=== PATIENT | female | born 1965 | race Caucasian/White ===

== ENCOUNTER 2020-10-05 13:16 | Emergency (ER) | payer OTHER, SELFPAY ==
--- NOTE | ~2020-10-05 | CT_ITS ---
EXAMINATION: CT ABDOMEN AND PELVIS WITHOUT CONTRAST CLINICAL INFORMATION: Rule out kidney stone on the left side, evaluate for hydrocele COMPARISON: None TECHNIQUE: Multidetector volumetric imaging was performed from the superior aspect of the liver through the pubic symphysis. Sagittal and coronal reformatted images were obtained on the technologist's workstation. This CT examination was performed using dose optimization techniques as appropriate, variously including the following: *Automated exposure control *Adjustment of mA and/or kV according to patient size (this includes techniques or standardized protocols for targeted exams where dose is matched to indication/reason for exam; i.e. extremities or head) *Use of iterative reconstruction technique DLP: 907 mGy-cm FINDINGS: LUNG BASES: The visualized lung bases are unremarkable. LIVER, GALLBLADDER, AND BILIARY TREE: The liver is normal in size, shape, and attenuation. No focal hepatic lesion or biliary ductal dilatation is present. The gallbladder is unremarkable with no evidence of radiopaque gallstones, gallbladder wall thickening, or obvious pericholecystic inflammatory changes. PANCREAS: Unremarkable. SPLEEN: Unremarkable. ADRENAL GLANDS: Unremarkable. KIDNEYS AND URETERS: The right kidney is normal in size shape and attenuation. No right-sided renal calculi or hydronephrosis. There is a 0.6 cm obstructing calculus in the left mid ureter. There is mild proximal hydronephrosis and hydroureter. There are multiple additional punctate calculi in the left mid and lower poles. BLADDER: Unremarkable. GASTROINTESTINAL TRACT: The small and large bowel are unremarkable. The appendix is unremarkable. ABDOMINAL WALL: No significant hernia is appreciated. LYMPH NODES: Small retroperitoneal lymph nodes. VASCULAR: The abdominal aorta is normal in caliber. There is moderate calcific atherosclerotic disease. PELVIC VISCERA: The uterus and adnexa are unremarkable. OSSEOUS STRUCTURES: Unremarkable. CT/CT abdomen pelvis wo con IMPRESSION: 1. There are 0.6 cm obstructing calculus in the left mid ureter. Mild hydronephrosis and proximal hydroureter. 2. Multiple punctate nonobstructing calculi in the left mid and lower poles.
[2020-10-05 14:03] VITALS: BP 170/84; PULSE 58; RESP 20; TEMP 36.6; O2SAT 98; BMI 33.3
[2020-10-05 14:41] LABS: Glucose Urine UA NEG (NEG); Leukocyte Esterase Urine NEG (NEG); Nitrite Urine NEG (NEG); PH 5.5 (5.0-8.0); Specific Gravity - Urine >= 1.030 (1.005-1.025); Urine Blood 3+ (NEG); Urine Ketones NEG (NEG); Urine Protein 1+ MG/DL (NEG-TRACE)
[2020-10-05 14:49] LABS: Appearance Urine HAZY; Color Urine YELLOW
[2020-10-05 14:56] LABS: RBC Urine 30-49 /HPF (0); Squamous Epithelial Cell Urine 1+ /LPF; WBC Urine 0 /HPF (0-4)
[2020-10-05 14:57] LABS: Mucus Urine 4+ /LPF
[2020-10-05 15:16] LABS: Basophils Absolute Auto 0.1 X10*3/uL (0.0-0.2); Basophils Percent Auto 0.6 % (0-2); Eosinophils Absolute Auto 0.1 X10*3/uL (0.0-0.4); Eosinophils Percent Auto 0.4 % (0-4); Hematocrit 44.2 % (37-47); Imm Gran Abs Auto 0.08 X10*3/uL (0.00-0.03); Imm Gran Pct Auto 0.6 % (0.0-0.4); Lymphocytes Absolute Auto 2.4 X10*3/uL (1.2-4.9); Lymphocytes Percent Auto 18.2 % (20-40); MANUAL DIFF FLAG NO; Mean Corpuscular HGB Conc 33.9 g/dl (31.0-35.0); Mean Corpuscular Hemoglobin 30.7 pg (27.0-33.0); Mean Corpuscular Volume 90.4 fL (80-98); Mean Platelet Volume 9.9 fL (9.4-12.3); Monocytes Percent Auto 7.3 % (2-11); Neutrophils Absolute Auto 9.6 X10*3/uL (2.0-8.3); Neutrophils Percent Auto 72.9 % (45-73); Platelet Count 317 X10*3/uL (160-400); Red Blood Count 4.89 X10*6/uL (4.20-5.50); Red Cell Distribution Width 12.8 % (11.0-16.0); White Blood Count 13.2 X10*3/uL (4.8-10.8)
[2020-10-05 15:44] LABS: Anion Gap 17 (12-20); Blood Urea Nitrogen 17 mg/dL (9-16); Calcium 10.1 mg/dL (8.4-10.2); Carbon Dioxide 22 mmol/L (22-29); Chloride 106 mmol/L (96-108); Creatinine Clr Calc Pharmacy 64.5; Estimated Glomerular Filt Rate 53; Glucose Random 144 mg/dL (60-115); Potassium 4.6 mmol/L (3.3-5.1); Sodium 140 mmol/L (135-145)
--- NOTE | 2020-10-05 18:39 | ED_ITS ---
HPI - General Adult General Chief complaint: General Medical Stated complaint: Kidney stone Time Seen by Provider: 10/05/20 17:52 Source: patient and family Mode of arrival: ambulatory Limitations: no limitations History of Present Illness HPI narrative: patient is a 55-year-old female with a past medical history of kidney stones who presents complaining of a kidney stone on her left side since this morning. She states she knows what it feels like it feels exactly the same as previous kidney stones. She says she has had small ones that she has been able to pass as well as larger ones that needed stenting and lithotripsy. she states this is worse than anyone she has had before. she says she has been vom iting 6 times over the past 5 hours and has nausea as well. She denies any fevers abdominal pain chest pain or diarrhea. she did take some Advil approximately 7 hours ago with minimal relief. She states nothing seems to make it better or worse. Related Data Previous Rx's Medication Instructions Recorded prednisone 40 mg PO DAILY #10 tab 10/05/20 tamsulosin [Flomax] 0.4 mg PO DAILY #7 cap 10/05/20 Allergies Allergy/AdvReac Type Severity Reaction Status Date / Time penicillin V AdvReac Intermediate Vomiting Verified 10/05/20 14:02 Review of Systems Review of Systems: Yes all other systems are reviewed and are negative [facility] Past Medical History Medical History Ectopic Kidney stones Surgical History H/O lithotripsy Social History Social History Advance Directives: No Advance Directives Information Provided: Yes Patient : No Physical Exam Vital Signs: Vital Signs: Last Vital Signs Temp 98.4 F 10/05/20 19:40 Pulse 78 10/05/20 19:40 Resp 16 10/05/20 19:40 BP 133/67 10/05/20 19:40 Pulse Ox 94 10/05/20 19:40 Body Mass Index 33.3 Const: General: cooperative, healthy appearing, comfortable, no acute distress and well developed Orientation/consciousness: patient oriented x3 Limitations: no limitations HENMT: Head: Yes normal to inspection Eyes: General: appearance normal, both eyes and all related structures Neck: Neck: Yes normal visual inspection and Yes full ROM Resp: Effort & Inspection: normal respiratory effort and able to speak in complete sentences Auscultation: clear to auscultation bilaterally Cardio: Rate: regular rate GI: Inspection: Yes normal to inspection Palpation (GI): Soft to palpation and nontender : General: Yes CVA tenderness (right side) Back/Spine/Pelvis: Back: CVA tenderness (right side) Skin: General skin exam: no rashes or lesions noted Neuro: General: patient oriented x3 Extrem: General: Yes normal to inspection Course Course Course Narrative: patient is a 55-year-old female with a past medical history of kidney stones who presents complaining of a kidney stone on her left side since this morning. Vital signs are remarkable for blood pressure 170/84, physical exam remarkable for left-sided CVA tenderness. labs notable for WBC 13.2, UA positive for blood and protein and mucus. Will get CT scan of abdomen and give IVF and IV Toradol. Reevaluation(s) Reevaluation #1: CT scan showed There is a 0.6 cm obstructing calculus in the left mid ureter. There is mild proximal hydronephrosis and hydroureter. There are multiple additional punctate calculi in the left mid and lower poles. Pt's pain is controlled. text to Dr. Pollack for guidance. Time: 19:40 Reevaluation #2: Dr. Dumont recommended Flomax prednisone and he will follow up with her this week in his office. Explained this to patient, we will give her the Flomax and prednisone now, along with a prescription for prednisone for the next 4 days. Patient understands and agrees with plan. Her pain is controlled, advised to add Tylenol in approximately 1 hour when she gets home for additional pain control. Medical Decision Making Lab Data Lab results reviewed: Yes I reviewed the patient's lab results. Result diagrams: 10/05/20 15:09 10/05/20 15:09 Labs: Lab Results 10/05/20 10/05/20 10/05/20 Range/Units 14:25 15:09 15:09 WBC 13.2 H (4.8-10.8) X10*3/uL RBC 4.89 (4.20-5.50) X10*6/uL Hgb 15.0 (12.0-16.0) g/dl Hct 44.2 (37-47) % MCV 90.4 (80-98) fL MCH 30.7 (27.0-33.0) pg MCHC 33.9 (31.0-35.0) g/dl RDW 12.8 (11.0-16.0) % Plt Count 317 (160-400) X10*3/uL MPV 9.9 (9.4-12.3) fL Immature Gran % (Auto) 0.6 H (0.0-0.4) % Neut % (Auto) 72.9 (45-73) % Lymph % (Auto) 18.2 L (20-40) % [place] % (Auto) 7.3 (2-11) % Eos % (Auto) 0.4 (0-4) % Baso % (Auto) 0.6 (0-2) % Lymph # (Auto) 2.4 (1.2-4.9) X10*3/uL [place] # (Auto) 1.0 (0.1-1.2) X10*3/uL Eos # (Auto) 0.1 (0.0-0.4) X10*3/uL Baso # (Auto) 0.1 (0.0-0.2) X10*3/uL Abs Immat Gran (auto) 0.08 H (0.00-0.03) X10*3/uL Absolute Neuts (auto) 9.6 H (2.0-8.3) X10*3/uL Absolute Nucleated RBC 0.000 (0.0-0.012) X10*3/uL Nucleated RBC % (auto) 0.0 (0.0-0.2) /100WBC Sodium 140 (135-145) mmol/L Potassium 4.6 (3.3-5.1) mmol/L Chloride 106 (96-108) mmol/L Carbon Dioxide 22 (22-29) mmol/L Anion Gap 17 (12-20) BUN 17 H (9-16) mg/dL Creatinine 1.07 (0.5-1.4) mg/dL Estim Creat Clear Calc 64.5 Estimated GFR 53 Random Glucose 144 H (60-115) mg/dL Calcium 10.1 (8.4-10.2) mg/dL Urine Color YELLOW Urine Appearance HAZY Urine pH 5.5 (5.0-8.0) Ur Specific [place] >= 1.030 H (1.005-1.025) Urine Protein 1+ H (NEG-TRACE) MG/DL Urine Glucose (UA) NEG (NEG) MG/DL Urine Ketones NEG (NEG) MG/DL Urine Blood 3+ H (NEG) Urine Nitrite NEG (NEG) Ur Leukocyte Esterase NEG (NEG) Urine RBC 30-49 H (0) /HPF Urine WBC 0 (0-4) /HPF Ur Squamous Epith Cells 1+ /LPF Urine Bacteria NONE /LPF Urine Mucus 4+ /LPF Imaging Data CT scan - abdomen: Attestation: I personally reviewed and interpreted this imaging study as follows: Radiologist's impression: [address] [id number] Scan ReportSigned Patient: Elizabeth Alvarado RMR#: [id number]: [id number]:[id number]/Sex: 55 / FADM Date: 10/05/20Loc: [address] Dr: Ordering Physician: Eliz Price PA-C Date of Service: 10/05/20 Procedure(s): CT abdomen pelvis wo con Accession Number(s): [id number] cc: Eliz Price PA-C~ EXAMINATION: CT ABDOMEN AND PELVIS WITHOUT CONTRAST CLINICAL INFORMATION: Rule out kidney stone on the left side, evaluate for hydrocele COMPARISON: None TECHNIQUE: Multidetector volumetric imaging was performed from the superior aspect of the liver through the pubic symphysis. Sagittal and coronal reformatted images were obtained on the technologist's workstation. This CT examination was performed using dose optimization techniques as appropriate, variously including the following: *Automated exposure control *Adjustment of mA and/or kV according to patient size (this includes techniques or standardized protocols for targeted exams where dose is matched to indication/reason for exam; i.e. extremities or head) *Use of iterative reconstruction technique DLP: 907 mGy-cm FINDINGS: LUNG BASES: The visualized lung bases are unremarkable. LIVER, GALLBLADDER, AND BILIARY TREE: The liver is normal in size, shape, and attenuation. No focal hepatic lesion or biliary ductal dilatation is present. The gallbladder is unremarkable with no evidence of radiopaque gallstones, gallbladder wall thickening, or obvious pericholecystic inflammatory changes. PANCREAS: Unremarkable. SPLEEN: Unremarkable. ADRENAL GLANDS: Unremarkable. KIDNEYS AND URETERS: The right kidney is normal in size shape and attenuation. No right-sided renal calculi or hydronephrosis. There is a 0.6 cm obstructing calculus in the left mid ureter. There is mild proximal hydronephrosis and hydroureter. There are multiple additional punctate calculi in the left mid and lower poles. BLADDER: Unremarkable. GASTROINTESTINAL TRACT: The small and large bowel are unremarkable. The appendix is unremarkable. ABDOMINAL WALL: No significant hernia is appreciated. LYMPH NODES: Small retroperitoneal lymph nodes. VASCULAR: The abdominal aorta is normal in caliber. There is moderate calcific atherosclerotic disease. PELVIC VISCERA: The uterus and adnexa are unremarkable. OSSEOUS STRUCTURES: Unremarkable. CT/CT abdomen pelvis wo con IMPRESSION: 1. There are 0.6 cm obstructing calculus in the left mid ureter. Mild hydronephrosis and proximal hydroureter. 2. Multiple punctate nonobstructing calculi in the left mid and lower poles. Dictated By:DISHA PLAZA MDSigned By:<Electronically signed by DISHA PLAZA MD in OV>10/05/201925 DD/ TD/TT: Rubber Goods Repairer: CEDRICK Discharge Plan Discharge Clinical Impression: Kidney stones, Hydronephrosis due to obstruction of ureter Patient Disposition: Home, Self-Care Instructions: Kidney Stones (ED), Hydronephrosis (ED) Additional Instructions: please be sure to drink lots of water, if you develop a fever or pain you can not control with ibuprofen and acetominophen, please return to the emergency department. as discussed, I have spoken with Dr. Pollack, he would like you to call his office tomorrow morning to make an appointment to follow up with him as you do have an obstructing stone on the left side with mild hydronephrosis. Please continue taking the Flomax and prednisone, as prescribed. You received Toradol which is an ibuprofen type medication at 6pm, you may take acetaminophen at 9pm tonight, if necessary for pain control. You can alternate acetaminophen with ibuprofen starting at 3:00am, every 3 hours take one or the other but please do not take them both at the same time. Prescriptions: New tamsulosin [Flomax] 0.4 mg capsule 0.4 mg PO DAILY Qty: 7 RF: 0 prednisone 20 mg tablet 40 mg PO DAILY Qty: 10 RF: 0 Referrals: Pierre Pollack MD [Physician] - 1 day ( Mild hydronephrosis left ureter with a 0.6 cm obstructing stone, multiple punctuate stones in left kidney)
[2020-10-05] MEDS: Ketorolac Tromethamine 30 MG/ML VIAL IVPUSH (19:08)
[2020-10-05] MEDS: ondansetron HCL 4 MG/2 ML VIAL IVPUSH (19:08)
[2020-10-05] MEDS: Lactated Ringers 1,000 ML 999 ML IV (19:08)
[2020-10-05 19:40] VITALS: BP 133/67; PULSE 78; RESP 16; TEMP 36.9; O2SAT 94
[2020-10-05] MEDS: Tamsulosin HCL 0.4 MG CAPSULE 0.8 MG PO (20:22)
[2020-10-05] MEDS: predniSONE 20 MG TABLET 40 MG PO (20:22)
== END 2020-10-05 21:03 | disposition home or self-care (01) ==
PROVIDERS: Emergency Provider Internal Medicine; PCP Internal Medicine
DX: N13.2 Hydronephrosis with renal and ureteral calculous obstruction (principal); Z87.442 Personal history of urinary calculi
CPT/HCPCS: 36415; 74176; 80048; 81001; 85025; 96361; 96374; 96375; 99284; J1885; J2405

== ENCOUNTER → 2020-10-08 08:58 | Outpatient (BNVA) | payer OTHER, SELFPAY | PROVIDERS: PCP Internal Medicine; Visit Provider Urology ==